=== PATIENT | male | born 1995 | race Caucasian/White ===

== ENCOUNTER 2018-02-23 20:20 | Emergency (ER) | payer SELFPAY ==
[~2018-02-23] VITALS: Ht 182.9 cm; Wt 80.0 kg
[2018-02-23] MEDS ORDERED: METHOCARBAMOL 500 MG TABLET PO ONE (21:45)
[2018-02-23] MEDS ORDERED: IBUPROFEN 800 MG TABLET PO ONE (21:45)
[2018-02-23 22:25] VITALS: BP 122/78
== END 2018-02-23 22:31 | disposition home or self-care (01) ==
LOC: EMS 20:21
DX: S29.012A Strain of muscle and tendon of back wall of thorax, initial encounter (principal); M54.2 Cervicalgia; M25.561 Pain in right knee; M25.562 Pain in left knee; F17.210 Nicotine dependence, cigarettes, uncomplicated; Z71.6 Tobacco abuse counseling; V49.9XXA Car occupant (driver) (passenger) injured in unspecified traffic accident, initial encounter; Y93.89 Activity, other specified; Y92.89 Other specified places as the place of occurrence of the external cause; Y99.8 Other external cause status
CPT/HCPCS: 99283; 99406